=== PATIENT | male | born 1940 | race African-American/Black ===

== ENCOUNTER 2016-07-28 20:50 | Inpatient (IN) | payer MEDICARE, MEDICAID ==
[~2016-07-28] VITALS: Ht 172.7 cm; Wt 72.6 kg
[~2016-07-28 20:50] MED LIST: CANAGLIFLOZIN; DOCU-150 PO; DORZ10DR9 OP; ENAL2.5T PO; GABA100C PO; GLIP5TAB12 PO; HEPARIN; HYDR-519 PO; IRON1CAP21 PO; LATA2.5D2 OP; METF500T4 PO; OMEG1CAP17 PO; OXYB15TA9 PO; SENN-22 PO; TRAM50TA3 PO
[2016-07-28 21:45] VITALS: BP 137/77
[2016-07-28] MEDS ORDERED: DEXTROSE 50% WATER 50ML SYRINGE IV PRN (22:00)
[2016-07-28] MEDS: BLOOD SUGAR DIAGNOSTIC STRIP TEST SCH (23:02)
[2016-07-28] MEDS: LATANOPROST 0.005% OPHTH DROPS 2.5ML RIGHTEYE SCH (23:02)
[2016-07-28] MEDS: INSULIN LISPRO 100 UNITS/ML SUBCUT SCH (23:05)
[2016-07-29] MEDS: PIPERACILLIN/TAZ 3.375G PREMIX 50 ML IV SCH ×5 (00:11→23:19)
[2016-07-29] MEDS: SODIUM CHLORIDE 0.9% 1,000 ML IV SCH ×2 (00:11→21:29)
[2016-07-29] MEDS ORDERED: BLOOD SUGAR DIAGNOSTIC STRIP TEST SCH (06:30)
[2016-07-29] MEDS: INSULIN LISPRO 100 UNITS/ML SUBCUT SCH ×4 (06:40→21:27)
[2016-07-29] MEDS: BLOOD SUGAR DIAGNOSTIC STRIP TEST SCH ×4 (06:40→21:29)
[2016-07-29 06:54] LABS: BASOPHILS % 0.7 % (0.0-2.0); EOSINOPHILS % 2.2 % (0.0-5.0); HEMATOCRIT. 26.1 % (42.0-52.0); HEMOGLOBIN. 8.5 g/dL (14.0-18.0); LYMPHOCYTES % 9.8 % (20.0-50.0); MEAN CORPUSCULAR HEMOGLOBIN 27.2 pg (28.0-32.0); MEAN CORPUSCULAR VOLUME 83.5 fL (80.0-94.0); MEAN PLATELET VOLUME 8.4 fl (7.4-10.4); MONOCYTES % 6.7 % (2.0-8.0); NEUTROPHILS % 80.6 % (40.0-76.0); PLATELET 212 x1000/uL (130-400); RED BLOOD CELL COUNT 3.12 mill/uL (4.7-6.1); RED CELL DISTRIBUTION WIDTH 16.8 % (11.6-14.6)
[2016-07-29 07:13] LABS: CARBON DIOXIDE 30 mEq/L (21-32); CHLORIDE 103 mEq/L (98-107)
[2016-07-29 08:00] VITALS: BP 128/65
[2016-07-29] MEDS: GABAPENTIN 100MG CAPSULE PO SCH ×2 (08:34→17:11)
[2016-07-29] MEDS: FAMOTIDINE 20MG TABLET PO SCH ×2 (08:34→21:20)
[2016-07-29] MEDS: DORZOLAM/TIMOLOL 2.23/0.68% OPHTH DROPS 10ML RIGHTEYE SCH ×2 (08:34→17:11)
[2016-07-29] MEDS: LOSARTAN POTASSIUM 50 MG TABLET PO SCH ×2 (08:35→21:20)
[2016-07-29] MEDS ORDERED: DOCUSATE SODIUM 100MG CAPSULE PO SCH (09:00)
[2016-07-29] MEDS ORDERED: INSULIN LISPRO 100 UNITS/ML SUBCUT SCH (09:00)
[2016-07-29] MEDS: ACETAMINOPHEN 650MG/20.3ML UDC PO PRN (12:39)
[2016-07-29] MEDS: DOCUSATE SODIUM 100MG CAPSULE PO SCH ×2 (17:00→17:11)
[2016-07-29 20:00] VITALS: BP 134/79
[2016-07-29] MEDS ORDERED: LATANOPROST 0.005% OPHTH DROPS 2.5ML RIGHTEYE SCH (21:00)
[2016-07-29] MEDS: HYDROCODONE/ACETAMINOPHEN 5/325MG TABLET PO PRN (21:23)
[2016-07-29] MEDS: LATANOPROST 0.005% OPHTH DROPS 2.5ML RIGHTEYE SCH (21:28)
[2016-07-30] MEDS: HYDROCODONE/ACETAMINOPHEN 5/325MG TABLET PO PRN ×2 (05:40→18:02)
[2016-07-30] MEDS: PIPERACILLIN/TAZ 3.375G PREMIX 50 ML IV SCH ×3 (06:33→17:22)
[2016-07-30] MEDS: BLOOD SUGAR DIAGNOSTIC STRIP TEST SCH ×4 (06:34→21:00)
[2016-07-30] MEDS: INSULIN LISPRO 100 UNITS/ML SUBCUT SCH ×4 (06:36→23:02)
[2016-07-30 08:00] VITALS: BP 145/87
[2016-07-30] MEDS: DOCUSATE SODIUM 100MG CAPSULE PO SCH ×2 (08:54→17:22)
[2016-07-30] MEDS: GABAPENTIN 100MG CAPSULE PO SCH ×2 (08:54→17:21)
[2016-07-30] MEDS: LOSARTAN POTASSIUM 50 MG TABLET PO SCH ×2 (08:54→21:00)
[2016-07-30] MEDS: FAMOTIDINE 20MG TABLET PO SCH ×2 (08:54→22:01)
[2016-07-30] MEDS: DORZOLAM/TIMOLOL 2.23/0.68% OPHTH DROPS 10ML RIGHTEYE SCH (08:55)
[2016-07-30] MEDS: DORZOLAM/TIMOLOL 2.23/0.68% OPHTH DROPS 10ML BOTHEYE SCH (17:21)
[2016-07-30 17:34] LABS: BASOPHILS % 0.6 % (0.0-2.0); EOSINOPHILS % 1.3 % (0.0-5.0); HEMATOCRIT. 26.9 % (42.0-52.0); HEMOGLOBIN. 8.6 g/dL (14.0-18.0); LYMPHOCYTES % 9.3 % (20.0-50.0); MEAN CORPUSCULAR HEMOGLOBIN 27.3 pg (28.0-32.0); MEAN CORPUSCULAR VOLUME 84.9 fL (80.0-94.0); MEAN PLATELET VOLUME 8.5 fl (7.4-10.4); MONOCYTES % 5.4 % (2.0-8.0); NEUTROPHILS % 83.4 % (40.0-76.0); PLATELET 216 x1000/uL (130-400); RED BLOOD CELL COUNT 3.16 mill/uL (4.7-6.1); RED CELL DISTRIBUTION WIDTH 16.9 % (11.6-14.6)
[2016-07-30 17:56] LABS: CARBON DIOXIDE 29 mEq/L (21-32); CHLORIDE 102 mEq/L (98-107)
[2016-07-30 20:00] VITALS: BP 110/66
[2016-07-30] MEDS: SODIUM CHLORIDE 0.9% 1,000 ML IV SCH (22:04)
[2016-07-30] MEDS: LATANOPROST 0.005% OPHTH DROPS 2.5ML BOTHEYE SCH (22:09)
[2016-07-31] MEDS: PIPERACILLIN/TAZ 3.375G PREMIX 50 ML IV SCH ×5 (00:48→23:20)
[2016-07-31] MEDS: BLOOD SUGAR DIAGNOSTIC STRIP TEST SCH ×4 (05:47→21:19)
[2016-07-31] MEDS: HYDROCODONE/ACETAMINOPHEN 5/325MG TABLET PO PRN ×3 (05:50→23:42)
[2016-07-31] MEDS: INSULIN LISPRO 100 UNITS/ML SUBCUT SCH ×4 (07:27→21:28)
[2016-07-31 08:00] VITALS: BP 135/87
[2016-07-31] MEDS: GABAPENTIN 100MG CAPSULE PO SCH ×2 (08:45→17:24)
[2016-07-31] MEDS: LOSARTAN POTASSIUM 50 MG TABLET PO SCH ×2 (08:45→21:19)
[2016-07-31] MEDS: FAMOTIDINE 20MG TABLET PO SCH ×2 (08:45→21:19)
[2016-07-31] MEDS: DOCUSATE SODIUM 100MG CAPSULE PO SCH ×2 (08:45→17:24)
[2016-07-31] MEDS: DORZOLAM/TIMOLOL 2.23/0.68% OPHTH DROPS 10ML BOTHEYE SCH ×3 (08:46→17:24)
[2016-07-31 20:00] VITALS: BP 150/72
[2016-07-31] MEDS: LATANOPROST 0.005% OPHTH DROPS 2.5ML BOTHEYE SCH (21:18)
[2016-07-31] MEDS: MICONAZOLE NITRATE 2% OINT 71GM TOP SCH (21:28)
[2016-07-31] MEDS: SODIUM CHLORIDE 0.9% 1,000 ML IV SCH (23:20)
[2016-08-01] MEDS: PIPERACILLIN/TAZ 3.375G PREMIX 50 ML IV SCH ×4 (05:00→23:14)
[2016-08-01 05:50] LABS: EOSINOPHILS % 1.5 % (0.0-5.0); HEMOGLOBIN. 8.7 g/dL (14.0-18.0); LYMPHOCYTES % 10.9 % (20.0-50.0); MEAN CORPUSCULAR HEMOGLOBIN 27.5 pg (28.0-32.0); MEAN CORPUSCULAR VOLUME 85.3 fL (80.0-94.0); MEAN PLATELET VOLUME 8.6 fl (7.4-10.4); MONOCYTES % 6.8 % (2.0-8.0); NEUTROPHILS % 79.8 % (40.0-76.0); PLATELET 207 x1000/uL (130-400); RED BLOOD CELL COUNT 3.17 mill/uL (4.7-6.1); RED CELL DISTRIBUTION WIDTH 17.3 % (11.6-14.6)
[2016-08-01] MEDS: BLOOD SUGAR DIAGNOSTIC STRIP TEST SCH ×4 (05:54→21:00)
[2016-08-01] MEDS: INSULIN LISPRO 100 UNITS/ML SUBCUT SCH ×4 (06:31→22:10)
[2016-08-01 06:39] LABS: CARBON DIOXIDE 29 mEq/L (21-32); CHLORIDE 103 mEq/L (98-107)
[2016-08-01 08:00] VITALS: BP 136/73
[2016-08-01] MEDS: DOCUSATE SODIUM 100MG CAPSULE PO SCH ×2 (09:06→16:39)
[2016-08-01] MEDS: LOSARTAN POTASSIUM 50 MG TABLET PO SCH ×2 (09:06→22:13)
[2016-08-01] MEDS: FAMOTIDINE 20MG TABLET PO SCH ×2 (09:06→22:13)
[2016-08-01] MEDS: GABAPENTIN 100MG CAPSULE PO SCH ×2 (09:06→16:39)
[2016-08-01] MEDS: DORZOLAM/TIMOLOL 2.23/0.68% OPHTH DROPS 10ML BOTHEYE SCH ×2 (09:07→17:16)
[2016-08-01] MEDS: MICONAZOLE NITRATE 2% OINT 71GM TOP SCH ×2 (09:12→22:08)
[2016-08-01] MEDS: HYDROCODONE/ACETAMINOPHEN 5/325MG TABLET PO PRN ×2 (16:39→23:22)
[2016-08-01 20:00] VITALS: BP 111/51
[2016-08-01] MEDS: LATANOPROST 0.005% OPHTH DROPS 2.5ML BOTHEYE SCH (21:00)
[2016-08-01] MEDS: SODIUM CHLORIDE 0.9% 1,000 ML IV SCH (22:08)
[2016-08-02] MEDS: BLOOD SUGAR DIAGNOSTIC STRIP TEST SCH ×4 (06:22→21:00)
[2016-08-02] MEDS: PIPERACILLIN/TAZ 3.375G PREMIX 50 ML IV SCH ×2 (06:22→11:38)
[2016-08-02] MEDS: INSULIN LISPRO 100 UNITS/ML SUBCUT SCH ×4 (06:26→22:19)
[2016-08-02 07:00] LABS: BASOPHILS % 0.9 % (0.0-2.0); EOSINOPHILS % 1.1 % (0.0-5.0); HEMATOCRIT. 26.8 % (42.0-52.0); HEMOGLOBIN. 8.7 g/dL (14.0-18.0); MEAN CORPUSCULAR HEMOGLOBIN 27.8 pg (28.0-32.0); MEAN CORPUSCULAR VOLUME 85.4 fL (80.0-94.0); MEAN PLATELET VOLUME 9.1 fl (7.4-10.4); MONOCYTES % 5.6 % (2.0-8.0); NEUTROPHILS % 82.4 % (40.0-76.0); PLATELET 192 x1000/uL (130-400); RED BLOOD CELL COUNT 3.14 mill/uL (4.7-6.1); RED CELL DISTRIBUTION WIDTH 17.3 % (11.6-14.6)
[2016-08-02 08:00] VITALS: BP 130/60
[2016-08-02] MEDS: LOSARTAN POTASSIUM 50 MG TABLET PO SCH ×2 (08:09→22:09)
[2016-08-02] MEDS: DOCUSATE SODIUM 100MG CAPSULE PO SCH ×2 (08:09→16:51)
[2016-08-02] MEDS: FAMOTIDINE 20MG TABLET PO SCH ×2 (08:09→22:09)
[2016-08-02] MEDS: GABAPENTIN 100MG CAPSULE PO SCH ×2 (08:09→16:51)
[2016-08-02] MEDS: MICONAZOLE NITRATE 2% OINT 71GM TOP SCH ×2 (08:12→22:24)
[2016-08-02] MEDS: HYDROCODONE/ACETAMINOPHEN 5/325MG TABLET PO PRN ×2 (08:12→22:11)
[2016-08-02] MEDS: DORZOLAM/TIMOLOL 2.23/0.68% OPHTH DROPS 10ML BOTHEYE SCH ×2 (08:17→16:51)
[2016-08-02 19:00] VITALS: BP 139/83
[2016-08-02] MEDS: LATANOPROST 0.005% OPHTH DROPS 2.5ML BOTHEYE SCH (22:09)
[2016-08-02] MEDS: SODIUM CHLORIDE 0.9% 1,000 ML IV SCH (22:24)
[2016-08-03] MEDS: BLOOD SUGAR DIAGNOSTIC STRIP TEST SCH ×4 (05:53→21:00)
[2016-08-03] MEDS: INSULIN LISPRO 100 UNITS/ML SUBCUT SCH ×4 (06:24→22:38)
[2016-08-03 06:44] LABS: BASOPHILS % 0.8 % (0.0-2.0); EOSINOPHILS % 1.2 % (0.0-5.0); HEMATOCRIT. 27.1 % (42.0-52.0); HEMOGLOBIN. 8.6 g/dL (14.0-18.0); LYMPHOCYTES % 11.9 % (20.0-50.0); MEAN CORPUSCULAR HEMOGLOBIN 27.1 pg (28.0-32.0); MEAN CORPUSCULAR VOLUME 85.3 fL (80.0-94.0); MEAN PLATELET VOLUME 8.5 fl (7.4-10.4); NEUTROPHILS % 80.1 % (40.0-76.0); PLATELET 191 x1000/uL (130-400); RED BLOOD CELL COUNT 3.17 mill/uL (4.7-6.1); RED CELL DISTRIBUTION WIDTH 17.1 % (11.6-14.6)
[2016-08-03 07:05] LABS: CHLORIDE 105 mEq/L (98-107)
[2016-08-03 07:21] LABS: CARBON DIOXIDE 29 mEq/L (21-32); CREATINE KINASE 164 IU/L (39-308)
[2016-08-03 08:00] VITALS: BP 132/77
[2016-08-03] MEDS: HYDROCODONE/ACETAMINOPHEN 5/325MG TABLET PO PRN (08:12)
[2016-08-03] MEDS: FAMOTIDINE 20MG TABLET PO SCH ×2 (08:12→22:31)
[2016-08-03] MEDS: DOCUSATE SODIUM 100MG CAPSULE PO SCH ×2 (08:12→16:28)
[2016-08-03] MEDS: LOSARTAN POTASSIUM 50 MG TABLET PO SCH ×2 (08:12→22:31)
[2016-08-03] MEDS: DORZOLAM/TIMOLOL 2.23/0.68% OPHTH DROPS 10ML BOTHEYE SCH ×2 (08:12→16:27)
[2016-08-03] MEDS: GABAPENTIN 100MG CAPSULE PO SCH ×2 (08:12→16:28)
[2016-08-03] MEDS: MICONAZOLE NITRATE 2% OINT 71GM TOP SCH ×2 (08:13→22:32)
[2016-08-03 20:00] VITALS: BP 139/76
[2016-08-03] MEDS: LATANOPROST 0.005% OPHTH DROPS 2.5ML BOTHEYE SCH (22:31)
[2016-08-04] MEDS: ACETAMINOPHEN 650MG/20.3ML UDC PO PRN ×2 (00:49→20:23)
[2016-08-04] MEDS: INSULIN LISPRO 100 UNITS/ML SUBCUT SCH ×4 (06:27→20:28)
[2016-08-04] MEDS: BLOOD SUGAR DIAGNOSTIC STRIP TEST SCH ×4 (06:28→20:28)
[2016-08-04 06:34] LABS: BASOPHILS % 1.2 % (0.0-2.0); EOSINOPHILS % 1.3 % (0.0-5.0); LYMPHOCYTES % 12.2 % (20.0-50.0); MEAN CORPUSCULAR HEMOGLOBIN 27.3 pg (28.0-32.0); MEAN PLATELET VOLUME 8.5 fl (7.4-10.4); MONOCYTES % 6.2 % (2.0-8.0); NEUTROPHILS % 79.1 % (40.0-76.0); PLATELET 199 x1000/uL (130-400); RED BLOOD CELL COUNT 3.29 mill/uL (4.7-6.1)
[2016-08-04 08:00] VITALS: BP 140/83
[2016-08-04] MEDS: LOSARTAN POTASSIUM 50 MG TABLET PO SCH ×2 (08:30→20:23)
[2016-08-04] MEDS: FAMOTIDINE 20MG TABLET PO SCH ×2 (08:30→20:23)
[2016-08-04] MEDS: DORZOLAM/TIMOLOL 2.23/0.68% OPHTH DROPS 10ML BOTHEYE SCH ×2 (08:30→16:59)
[2016-08-04] MEDS: MICONAZOLE NITRATE 2% OINT 71GM TOP SCH ×2 (08:31→20:29)
[2016-08-04] MEDS: GABAPENTIN 100MG CAPSULE PO SCH ×2 (08:31→16:59)
[2016-08-04] MEDS: DOCUSATE SODIUM 100MG CAPSULE PO SCH ×2 (08:31→16:59)
[2016-08-04 20:00] VITALS: BP 135/72
[2016-08-04] MEDS: LATANOPROST 0.005% OPHTH DROPS 2.5ML BOTHEYE SCH (20:24)
[2016-08-04] MEDS: INSULIN DETEMIR UD 100 UNITS/ML SYR SUBCUT SCH (21:36)
[2016-08-05] MEDS: BLOOD SUGAR DIAGNOSTIC STRIP TEST SCH ×4 (06:40→21:42)
[2016-08-05] MEDS: INSULIN LISPRO 100 UNITS/ML SUBCUT SCH ×4 (06:40→21:38)
[2016-08-05] MEDS: HYDROCODONE/ACETAMINOPHEN 5/325MG TABLET PO PRN ×2 (06:46→18:10)
[2016-08-05 08:00] VITALS: BP 127/71
[2016-08-05] MEDS: MICONAZOLE NITRATE 2% OINT 71GM TOP SCH ×2 (08:33→21:41)
[2016-08-05] MEDS: LOSARTAN POTASSIUM 50 MG TABLET PO SCH ×2 (08:34→21:42)
[2016-08-05] MEDS: FAMOTIDINE 20MG TABLET PO SCH ×2 (08:34→21:33)
[2016-08-05] MEDS: GABAPENTIN 100MG CAPSULE PO SCH ×2 (08:34→18:01)
[2016-08-05] MEDS: DOCUSATE SODIUM 100MG CAPSULE PO SCH ×2 (08:34→18:01)
[2016-08-05] MEDS: METFORMIN HCL 500MG TABLET PO SCH ×2 (08:34→18:01)
[2016-08-05] MEDS: DORZOLAM/TIMOLOL 2.23/0.68% OPHTH DROPS 10ML BOTHEYE SCH ×2 (08:34→18:01)
[2016-08-05 20:00] VITALS: BP 122/70
[2016-08-05] MEDS: LATANOPROST 0.005% OPHTH DROPS 2.5ML BOTHEYE SCH (21:35)
[2016-08-05] MEDS: INSULIN DETEMIR UD 100 UNITS/ML SYR SUBCUT SCH (21:39)
[2016-08-06] MEDS: INSULIN LISPRO 100 UNITS/ML SUBCUT SCH ×4 (06:10→21:31)
[2016-08-06] MEDS: BLOOD SUGAR DIAGNOSTIC STRIP TEST SCH ×4 (06:10→21:22)
[2016-08-06] MEDS: HYDROCODONE/ACETAMINOPHEN 5/325MG TABLET PO PRN ×2 (06:24→21:24)
[2016-08-06 07:47] VITALS: BP 145/78
[2016-08-06] MEDS: DOCUSATE SODIUM 100MG CAPSULE PO SCH ×2 (08:39→17:03)
[2016-08-06] MEDS: LOSARTAN POTASSIUM 50 MG TABLET PO SCH ×2 (08:39→21:22)
[2016-08-06] MEDS: FAMOTIDINE 20MG TABLET PO SCH ×2 (08:39→21:22)
[2016-08-06] MEDS: METFORMIN HCL 500MG TABLET PO SCH ×2 (08:39→17:03)
[2016-08-06] MEDS: GABAPENTIN 100MG CAPSULE PO SCH ×2 (08:39→17:03)
[2016-08-06] MEDS: DORZOLAM/TIMOLOL 2.23/0.68% OPHTH DROPS 10ML BOTHEYE SCH ×2 (08:40→17:03)
[2016-08-06] MEDS: MICONAZOLE NITRATE 2% OINT 71GM TOP SCH ×2 (08:40→21:29)
[2016-08-06 20:00] VITALS: BP 116/49
[2016-08-06] MEDS: LATANOPROST 0.005% OPHTH DROPS 2.5ML BOTHEYE SCH (21:22)
[2016-08-06] MEDS: INSULIN DETEMIR UD 100 UNITS/ML SYR SUBCUT SCH (21:30)
[2016-08-07 05:42] LABS: BASOPHILS % 1.1 % (0.0-2.0); EOSINOPHILS % 2.1 % (0.0-5.0); HEMOGLOBIN. 9.6 g/dL (14.0-18.0); LYMPHOCYTES % 11.4 % (20.0-50.0); MEAN CORPUSCULAR HEMOGLOBIN 27.2 pg (28.0-32.0); MEAN CORPUSCULAR VOLUME 85.2 fL (80.0-94.0); MEAN PLATELET VOLUME 8.3 fl (7.4-10.4); MONOCYTES % 6.1 % (2.0-8.0); NEUTROPHILS % 79.3 % (40.0-76.0); PLATELET 207 x1000/uL (130-400); RED BLOOD CELL COUNT 3.52 mill/uL (4.7-6.1); RED CELL DISTRIBUTION WIDTH 17.1 % (11.6-14.6)
[2016-08-07 06:04] LABS: CHLORIDE 104 mEq/L (98-107)
[2016-08-07 06:11] LABS: CARBON DIOXIDE 29 mEq/L (21-32)
[2016-08-07] MEDS: BLOOD SUGAR DIAGNOSTIC STRIP TEST SCH ×2 (06:15→11:15)
[2016-08-07] MEDS: INSULIN LISPRO 100 UNITS/ML SUBCUT SCH ×2 (06:46→12:57)
[2016-08-07 08:00] VITALS: BP 126/84
[2016-08-07] MEDS: DOCUSATE SODIUM 100MG CAPSULE PO SCH (08:23)
[2016-08-07] MEDS: GABAPENTIN 100MG CAPSULE PO SCH (08:23)
[2016-08-07] MEDS: FAMOTIDINE 20MG TABLET PO SCH (08:23)
[2016-08-07] MEDS: LOSARTAN POTASSIUM 50 MG TABLET PO SCH (08:24)
[2016-08-07] MEDS: METFORMIN HCL 500MG TABLET PO SCH (08:24)
[2016-08-07] MEDS: DORZOLAM/TIMOLOL 2.23/0.68% OPHTH DROPS 10ML BOTHEYE SCH (08:26)
[2016-08-07] MEDS: MICONAZOLE NITRATE 2% OINT 71GM TOP SCH (08:27)
[2016-08-07] MEDS: HYDROCODONE/ACETAMINOPHEN 5/325MG TABLET PO PRN (08:40)
[2016-08-07 13:14] VITALS: BP 138/81
== END 2016-08-07 16:15 | DRG 299 ==
PROVIDERS: ADMIT Psychiatry & Neurology Neurology; ATTEND Internal Medicine
DX: E11.52 Type 2 diabetes mellitus with diabetic peripheral angiopathy with gangrene (principal); A41.9 Sepsis, unspecified organism; I10 Essential (primary) hypertension; H40.9 Unspecified glaucoma; G54.6 Phantom limb syndrome with pain; E78.5 Hyperlipidemia, unspecified; D64.9 Anemia, unspecified; M25.431 Effusion, right wrist; R26.89 Other abnormalities of gait and mobility; E11.621 Type 2 diabetes mellitus with foot ulcer; L97.529 Non-pressure chronic ulcer of other part of left foot with unspecified severity; Z89.512 Acquired absence of left leg below knee
CPT/HCPCS: 36415; 80048; 80076; 82550; 82962; 83605; 83615; 83735; 85025; 85651; 86140; 92523; 92610; 97110; 97116; 97163; 97167; 97530; 97532; 97535; 97542; A6261; J1815; J2543; J7030

== ENCOUNTER 2016-10-01 13:14 | Inpatient (IN) | payer MEDICARE, MEDICAID ==
[~2016-10-01] VITALS: Ht 180.3 cm; Wt 77.6 kg
[~2016-10-01 13:14] MED LIST changes: -CANAGLIFLOZIN; -ENAL2.5T PO; -GLIP5TAB12 PO; -HEPARIN; -HYDR-519 PO; -IRON1CAP21 PO; -OMEG1CAP17 PO; -OXYB15TA9 PO; -SENN-22 PO; -TRAM50TA3 PO
[2016-10-01 15:09] LABS: CARBON DIOXIDE 30 mEq/L (21-32); CHLORIDE 99 mEq/L (98-107)
[2016-10-01 15:10] LABS: HEMATOCRIT 33.3 % (42.0-52.0); HEMOGLOBIN 10.6 g/dL (14.0-18.0); MEAN CORPUSCULAR HEMOGLOBIN 26.3 pg (28.0-32.0); PLATELET 261 x1000/uL (130-400); RED BLOOD CELL COUNT 4.02 mill/uL (4.7-6.1); RED CELL DISTRIBUTION WIDTH 15.8 % (11.6-14.6)
[2016-10-01] MEDS ORDERED: CEFTRIAXONE 1 G PREMIX 50 ML IV ONE (16:15)
[2016-10-01] MEDS ORDERED: VANCOMYCIN 1 G PREMIX 200 ML IV SCH (21:00)
[2016-10-01] MEDS ORDERED: IPRATROPIUM/ALBUTEROL 0.5-3(2.5)MG/3ML NEB INH PRN (21:00)
[2016-10-01 21:15] VITALS: BP 136/75
[2016-10-01 22:00] VITALS: BP 107/73
[2016-10-01 22:05] LABS: CHLORIDE 98 mEq/L (98-107)
[2016-10-01 22:10] LABS: CARBON DIOXIDE 29 mEq/L (21-32)
[2016-10-01] MEDS ORDERED: VANCOMYCIN 1500MG in DEXTROSE 5% WATER 250ML IV NR (23:00)
[2016-10-02] VITALS: BP 154/82
[2016-10-02] MEDS: SODIUM CHLORIDE 0.45% 1,000 ML IV SCH ×2 (00:25→22:14)
[2016-10-02] MEDS: LEVOFLOXACIN 500MG PREMIX 100 ML IV SCH ×2 (00:35→23:16)
[2016-10-02] MEDS ORDERED: DEXTROSE 50% WATER 50ML SYRINGE IV PRN (01:30)
[2016-10-02 04:00] VITALS: BP 138/76
[2016-10-02] MEDS: BLOOD SUGAR DIAGNOSTIC STRIP TEST SCH ×4 (06:28→21:22)
[2016-10-02 06:43] LABS: HEMATOCRIT. 33.6 % (42.0-52.0); MEAN PLATELET VOLUME 7.9 fl (7.4-10.4); PLATELET 244 x1000/uL (130-400); RED BLOOD CELL COUNT 4.09 mill/uL (4.7-6.1); RED CELL DISTRIBUTION WIDTH 15.7 % (11.6-14.6)
[2016-10-02] MEDS: HYDROCODONE/ACETAMINOPHEN 5/325MG TABLET PO PRN ×3 (06:51→22:16)
[2016-10-02 08:00] VITALS: BP 143/78
[2016-10-02 08:26] LABS: PLATELET ESTIMATE NORMAL
[2016-10-02] MEDS: INSULIN LISPRO 100 UNITS/ML SUBCUT SCH ×4 (11:23→21:00)
[2016-10-02] MEDS: ENOXAPARIN 40MG/0.4ML SYR SUBCUT SCH (11:24)
[2016-10-02 12:00] VITALS: BP 148/71
[2016-10-02] MEDS: VANCOMYCIN 750 MG PREMIX 150 ML IV SCH (12:27)
[2016-10-02 16:00] VITALS: BP 142/76
[2016-10-02 20:00] VITALS: BP 157/74
[2016-10-02] MEDS: SILVER SULFADIAZINE 1% CREAM 50GM TOP SCH (21:00)
[2016-10-03] VITALS: BP 135/78
[2016-10-03] MEDS: VANCOMYCIN 750 MG PREMIX 150 ML IV SCH ×3 (00:32→20:03)
[2016-10-03 04:00] VITALS: BP 127/60
[2016-10-03] MEDS: BLOOD SUGAR DIAGNOSTIC STRIP TEST SCH ×4 (06:47→21:29)
[2016-10-03 08:00] VITALS: BP 156/81
[2016-10-03] MEDS: INSULIN LISPRO 100 UNITS/ML SUBCUT SCH ×4 (08:58→21:36)
[2016-10-03] MEDS: ENOXAPARIN 40MG/0.4ML SYR SUBCUT SCH (09:00)
[2016-10-03 12:00] VITALS: BP 180/84
[2016-10-03] MEDS: CLONIDINE 0.1MG TABLET PO PRN (12:59)
[2016-10-03] MEDS: SODIUM CHLORIDE 0.45% 1,000 ML IV SCH (13:37)
[2016-10-03 16:00] VITALS: BP 120/65
[2016-10-03] MEDS: SILVER SULFADIAZINE 1% CREAM 50GM TOP SCH ×2 (18:34→20:15)
[2016-10-03] MEDS: HYDROCODONE/ACETAMINOPHEN 5/325MG TABLET PO PRN (19:01)
[2016-10-03 20:00] VITALS: BP 132/68
[2016-10-04] VITALS: BP 127/67
[2016-10-04] MEDS ORDERED: LEVOFLOXACIN 500MG PREMIX 100 ML IV SCH
[2016-10-04] MEDS: PIPERACILLIN/TAZ 3.375G PREMIX 50 ML IV SCH ×3 (00:07→20:29)
[2016-10-04] MEDS: HYDROCODONE/ACETAMINOPHEN 5/325MG TABLET PO PRN (00:17)
[2016-10-04 04:00] VITALS: BP 111/80
[2016-10-04] MEDS: VANCOMYCIN 750 MG PREMIX 150 ML IV SCH (04:41)
[2016-10-04] MEDS: SODIUM CHLORIDE 0.45% 1,000 ML IV SCH ×3 (06:07→22:38)
[2016-10-04] MEDS: BLOOD SUGAR DIAGNOSTIC STRIP TEST SCH ×4 (06:28→20:00)
[2016-10-04] MEDS: INSULIN LISPRO 100 UNITS/ML SUBCUT SCH ×4 (07:50→21:00)
[2016-10-04 08:00] VITALS: BP 131/63
[2016-10-04 09:00] LABS: EOSINOPHILS % 1.9 % (0.0-5.0); HEMATOCRIT. 32.5 % (42.0-52.0); HEMOGLOBIN. 10.4 g/dL (14.0-18.0); LYMPHOCYTES % 14.4 % (20.0-50.0); MEAN CORPUSCULAR HEMOGLOBIN 26.3 pg (28.0-32.0); MEAN PLATELET VOLUME 7.7 fl (7.4-10.4); MONOCYTES % 6.7 % (2.0-8.0); PLATELET 251 x1000/uL (130-400); RED BLOOD CELL COUNT 3.96 mill/uL (4.7-6.1); RED CELL DISTRIBUTION WIDTH 15.7 % (11.6-14.6)
[2016-10-04] MEDS: ENOXAPARIN 40MG/0.4ML SYR SUBCUT SCH (09:00)
[2016-10-04 09:04] LABS: INR 1.3; PROTHROMBIN TIME 13.1 sec (9.4-11.6)
[2016-10-04 09:28] LABS: CARBON DIOXIDE 30 mEq/L (21-32); CHLORIDE 103 mEq/L (98-107)
[2016-10-04 12:00] VITALS: BP 161/79
[2016-10-04] MEDS ORDERED: MIDAZOLAM HCL 2 MG/2 ML VIAL ONE (13:10)
[2016-10-04] MEDS ORDERED: ONDANSETRON HCL 4MG/2ML VIAL ONE (13:10)
[2016-10-04] MEDS ORDERED: FENTANYL CITRATE/PF 50MCG/ML 2ML VIAL ONE (13:10)
[2016-10-04] MEDS ORDERED: PROPOFOL 200MG/20ML VIAL IV ONE (13:10)
[2016-10-04] MEDS ORDERED: LIDOCAINE HCL 1% 20ML VIAL (Pyxis) INJ ONE (13:10)
[2016-10-04] MEDS ORDERED: NORMAL SALINE 0.9% 10 ML SYR ONE (13:29)
[2016-10-04] MEDS ORDERED: BACITRACIN 50,000 UNITS/VIAL ONE (13:29)
[2016-10-04] MEDS ORDERED: LABETALOL HCL 5MG/ML VIAL 20ML IV ONE (14:08)
[2016-10-04] MEDS: ONDANSETRON HCL 4MG/2ML VIAL IV PRN ×2 (14:28→14:31)
[2016-10-04] MEDS: HYDROMORPHONE HCL/PF 2MG/ML CPJ IV PRN ×3 (14:34→22:39)
[2016-10-04] MEDS ORDERED: HYDRALAZINE 20MG/ML VIAL IV NR (17:00)
[2016-10-04 18:00] VITALS: BP 144/71
[2016-10-04 20:00] VITALS: BP 153/75
[2016-10-04] MEDS: VANCOMYCIN 1500MG in DEXTROSE 5% WATER 250ML IV SCH (20:29)
[2016-10-05] VITALS (9 sets, daily range): BP systolic 91–171; BP diastolic 51–85
[2016-10-05] MEDS: PIPERACILLIN/TAZ 3.375G PREMIX 50 ML IV SCH ×4 (00:38→23:50)
[2016-10-05] MEDS: HYDROCODONE/ACETAMINOPHEN 5/325MG TABLET PO PRN ×4 (04:24→21:48)
[2016-10-05] MEDS: BLOOD SUGAR DIAGNOSTIC STRIP TEST SCH ×4 (06:33→21:14)
[2016-10-05] MEDS: SODIUM CHLORIDE 0.45% 1,000 ML IV SCH ×2 (06:33→21:13)
[2016-10-05] MEDS: VANCOMYCIN 1500MG in DEXTROSE 5% WATER 250ML IV SCH (06:33)
[2016-10-05 06:38] LABS: HEMATOCRIT. 29.8 % (42.0-52.0); HEMOGLOBIN. 9.5 g/dL (14.0-18.0); MEAN CORPUSCULAR HEMOGLOBIN 26.2 pg (28.0-32.0); MEAN PLATELET VOLUME 8.5 fl (7.4-10.4); PLATELET 290 x1000/uL (130-400); RED BLOOD CELL COUNT 3.63 mill/uL (4.7-6.1); RED CELL DISTRIBUTION WIDTH 15.4 % (11.6-14.6)
[2016-10-05 06:57] LABS: CARBON DIOXIDE 26 mEq/L (21-32); CHLORIDE 100 mEq/L (98-107)
[2016-10-05] MEDS: HYDROMORPHONE HCL/PF 2MG/ML CPJ IV PRN (09:25)
[2016-10-05] MEDS: SILVER SULFADIAZINE 1% CREAM 50GM TOP SCH (12:30)
[2016-10-05] MEDS: INSULIN LISPRO 100 UNITS/ML SUBCUT SCH ×3 (12:50→21:48)
[2016-10-05 16:23] LABS: HEMOGLOBIN. 7.8 g/dL (14.0-18.0); MEAN CORPUSCULAR HEMOGLOBIN 26.3 pg (28.0-32.0); MEAN CORPUSCULAR VOLUME 81.2 fL (80.0-94.0); MEAN PLATELET VOLUME 8.7 fl (7.4-10.4); PLATELET 279 x1000/uL (130-400); RED BLOOD CELL COUNT 2.95 mill/uL (4.7-6.1); RED CELL DISTRIBUTION WIDTH 15.7 % (11.6-14.6)
[2016-10-05 19:47] LABS: PLATELET ESTIMATE NORMAL
[2016-10-05] MEDS: AMIKACIN SULFATE 400 MG in SODIUM CHLORIDE 0.9% 100 ML IV SCH (21:14)
[2016-10-05 22:14] LABS: PLATELET ESTIMATE NORMAL
[2016-10-06] VITALS (18 sets, daily range): BP systolic 106–139; BP diastolic 46–78
[2016-10-06] MEDS: BLOOD SUGAR DIAGNOSTIC STRIP TEST SCH ×4 (06:22→21:00)
[2016-10-06] MEDS: PIPERACILLIN/TAZ 3.375G PREMIX 50 ML IV SCH ×3 (06:22→23:36)
[2016-10-06] MEDS: AMIKACIN SULFATE 400 MG in SODIUM CHLORIDE 0.9% 100 ML IV SCH ×2 (06:22→13:43)
[2016-10-06 07:17] LABS: HEMATOCRIT. 23.7 % (42.0-52.0); HEMOGLOBIN. 7.6 g/dL (14.0-18.0); MEAN CORPUSCULAR HEMOGLOBIN 26.6 pg (28.0-32.0); MEAN CORPUSCULAR VOLUME 82.3 fL (80.0-94.0); MEAN PLATELET VOLUME 8.7 fl (7.4-10.4); PLATELET 244 x1000/uL (130-400); RED BLOOD CELL COUNT 2.88 mill/uL (4.7-6.1); RED CELL DISTRIBUTION WIDTH 15.4 % (11.6-14.6)
[2016-10-06 07:19] LABS: CARBON DIOXIDE 28 mEq/L (21-32); CHLORIDE 99 mEq/L (98-107); CREATINE KINASE 525 IU/L (39-308); VANCOMYCIN TROUGH 9.1 ug/mL (5.0-10.0)
[2016-10-06] MEDS: SILVER SULFADIAZINE 1% CREAM 50GM TOP SCH (07:32)
[2016-10-06] MEDS: SODIUM CHLORIDE 0.45% 1,000 ML IV SCH ×2 (11:37→23:38)
[2016-10-06] MEDS: INSULIN LISPRO 100 UNITS/ML SUBCUT SCH ×3 (13:41→21:00)
[2016-10-06] MEDS: HYDROCODONE/ACETAMINOPHEN 5/325MG TABLET PO PRN ×2 (13:53→18:11)
[2016-10-06 16:22] LABS: MEAN CORPUSCULAR HEMOGLOBIN 26.6 pg (28.0-32.0); MEAN CORPUSCULAR VOLUME 82.2 fL (80.0-94.0); MEAN PLATELET VOLUME 9.1 fl (7.4-10.4); PLATELET 236 x1000/uL (130-400); RED CELL DISTRIBUTION WIDTH 15.6 % (11.6-14.6)
[2016-10-06 16:31] LABS: HEMATOCRIT. 18.1 % (42.0-52.0); HEMOGLOBIN. 5.9 g/dL (14.0-18.0)
[2016-10-06 19:44] LABS: PLATELET ESTIMATE NORMAL
[2016-10-06] MEDS: VANCOMYCIN 1500MG in DEXTROSE 5% WATER 250ML IV SCH (21:37)
[2016-10-06 22:46] LABS: PLATELET ESTIMATE NORMAL
[2016-10-06] MEDS: MORPHINE SULFATE 2 MG/ML CPJ (NOT FOR IM USE) IV PRN (23:39)
[2016-10-07] VITALS (8 sets, daily range): BP systolic 116–157; BP diastolic 47–76
[2016-10-07] MEDS: MORPHINE SULFATE 2 MG/ML CPJ (NOT FOR IM USE) IV PRN ×3 (04:25→12:36)
[2016-10-07] MEDS: PIPERACILLIN/TAZ 3.375G PREMIX 50 ML IV SCH ×3 (06:00→12:35)
[2016-10-07 06:13] LABS: HEMATOCRIT. 21.2 % (42.0-52.0); HEMOGLOBIN. 7.1 g/dL (14.0-18.0); MEAN CORPUSCULAR HEMOGLOBIN 27.7 pg (28.0-32.0); MEAN CORPUSCULAR VOLUME 83.2 fL (80.0-94.0); PLATELET 223 x1000/uL (130-400); RED BLOOD CELL COUNT 2.55 mill/uL (4.7-6.1); RED CELL DISTRIBUTION WIDTH 14.6 % (11.6-14.6)
[2016-10-07 06:31] LABS: CARBON DIOXIDE 25 mEq/L (21-32); CHLORIDE 100 mEq/L (98-107)
[2016-10-07] MEDS: VANCOMYCIN 1500MG in DEXTROSE 5% WATER 250ML IV SCH ×2 (06:34→17:00)
[2016-10-07] MEDS: BLOOD SUGAR DIAGNOSTIC STRIP TEST SCH ×4 (07:20→21:00)
[2016-10-07] MEDS: SILVER SULFADIAZINE 1% CREAM 50GM TOP SCH (08:15)
[2016-10-07 08:53] LABS: INR 1.3; PROTHROMBIN TIME 13.4 sec (9.4-11.6)
[2016-10-07] MEDS: INSULIN LISPRO 100 UNITS/ML SUBCUT SCH ×4 (09:35→22:58)
[2016-10-07] MEDS: SODIUM CHLORIDE 0.45% 1,000 ML IV SCH (10:50)
[2016-10-07 12:30] LABS: INR 1.3; PARTIAL THROMBOPLASTIN TIME 28.7 sec (23.4-31.0); PROTHROMBIN TIME 13.4 sec (9.4-11.6)
[2016-10-07 16:14] LABS: MEAN CORPUSCULAR HEMOGLOBIN 27.3 pg (28.0-32.0); MEAN CORPUSCULAR VOLUME 83.3 fL (80.0-94.0); MEAN PLATELET VOLUME 8.3 fl (7.4-10.4); PLATELET 206 x1000/uL (130-400); RED BLOOD CELL COUNT 2.21 mill/uL (4.7-6.1); RED CELL DISTRIBUTION WIDTH 14.6 % (11.6-14.6)
[2016-10-07 16:19] LABS: HEMATOCRIT. 18.4 % (42.0-52.0)
[2016-10-07] MEDS ORDERED: BACITRACIN 50,000 UNITS/VIAL ONE (17:17)
[2016-10-07] MEDS ORDERED: NORMAL SALINE 0.9% 10 ML SYR ONE (17:40)
[2016-10-07] MEDS ORDERED: SODIUM CHLORIDE 0.9% 10ML VIAL ONE ×3 (17:41→18:29)
[2016-10-07] MEDS ORDERED: PHENYLEPHRINE HCL 10 MG/ML 1ML (IV VIAL) IV ONE (17:41)
[2016-10-07] MEDS ORDERED: PROPOFOL 200MG/20ML VIAL IV ONE (17:41)
[2016-10-07] MEDS ORDERED: LIDOCAINE HCL 1% 20ML VIAL (Pyxis) INJ ONE (17:41)
[2016-10-07] MEDS ORDERED: ROCURONIUM BROMIDE 10MG/ML VIAL 5ML IV ONE (17:46)
[2016-10-07 18:28] LABS: PLATELET ESTIMATE NORMAL
[2016-10-07] MEDS ORDERED: CEFAZOLIN SODIUM 1000MG/VIAL ONE (18:29)
[2016-10-07] MEDS ORDERED: ONDANSETRON HCL 4MG/2ML VIAL ONE (18:36)
[2016-10-07] MEDS ORDERED: DEXAMETHASONE 4MG/ML 1ML VIAL ONE (18:36)
[2016-10-07] MEDS ORDERED: [UNRECOGNIZED DRUG - OTHER] ONE ×2 (18:38→18:42)
[2016-10-07 18:49] LABS: PLATELET ESTIMATE NORMAL
[2016-10-07] MEDS ORDERED: EPINEPHRINE 1:1000 1 MG/ML AMP ONE (18:55)
[2016-10-07] MEDS ORDERED: MORPHINE SULFATE 2 MG/ML CPJ (NOT FOR IM USE) IV PRN (20:45)
[2016-10-07 22:45] LABS: HEMATOCRIT. 28.9 % (42.0-52.0); HEMOGLOBIN. 9.6 g/dL (14.0-18.0); MEAN CORPUSCULAR HEMOGLOBIN 29.3 pg (28.0-32.0); MEAN CORPUSCULAR VOLUME 88.2 fL (80.0-94.0); MEAN PLATELET VOLUME 8.6 fl (7.4-10.4); PLATELET 169 x1000/uL (130-400); RED BLOOD CELL COUNT 3.28 mill/uL (4.7-6.1); RED CELL DISTRIBUTION WIDTH 16.3 % (11.6-14.6)
[2016-10-07] MEDS: DEXT 5%/0.45% NACL KCL 20MEQ/L 1,000 ML IV SCH (22:59)
[2016-10-07] MEDS: CEFAZOLIN 1000MG PREMIX 50 ML IV SCH (23:00)
[2016-10-07 23:05] LABS: NUCLEATED RED BLOOD CELLS 1 /100 WBC; PLATELET ESTIMATE NORMAL
[2016-10-08] VITALS (7 sets, daily range): BP systolic 116–150; BP diastolic 66–82
[2016-10-08] MEDS: CEFAZOLIN 1000MG PREMIX 50 ML IV SCH ×2 (04:29→12:36)
[2016-10-08] MEDS: ACETAMINOPHEN 325MG TABLET PO PRN (04:37)
[2016-10-08] MEDS: VANCOMYCIN 1500MG in DEXTROSE 5% WATER 250ML IV SCH ×2 (05:02→17:14)
[2016-10-08] MEDS: BLOOD SUGAR DIAGNOSTIC STRIP TEST SCH ×4 (07:21→21:00)
[2016-10-08] MEDS: INSULIN LISPRO 100 UNITS/ML SUBCUT SCH ×4 (07:38→22:10)
[2016-10-08 07:52] LABS: HEMATOCRIT. 25.9 % (42.0-52.0); HEMOGLOBIN. 8.6 g/dL (14.0-18.0); MEAN CORPUSCULAR HEMOGLOBIN 29.3 pg (28.0-32.0); MEAN CORPUSCULAR VOLUME 88.2 fL (80.0-94.0); PLATELET 158 x1000/uL (130-400); RED BLOOD CELL COUNT 2.94 mill/uL (4.7-6.1); RED CELL DISTRIBUTION WIDTH 15.7 % (11.6-14.6)
[2016-10-08] MEDS: SILVER SULFADIAZINE 1% CREAM 50GM TOP SCH (09:00)
[2016-10-08] MEDS: DEXT 5%/0.45% NACL KCL 20MEQ/L 1,000 ML IV SCH ×2 (12:36→15:30)
[2016-10-08] MEDS: MORPHINE SULFATE 2 MG/ML CPJ (NOT FOR IM USE) IV PRN ×2 (14:12→22:42)
[2016-10-08 16:08] LABS: HEMOGLOBIN 8.8 g/dL (14.0-18.0)
[2016-10-09 00:44] VITALS: BP 129/65
[2016-10-09] MEDS: DEXT 5%/0.45% NACL KCL 20MEQ/L 1,000 ML IV SCH ×2 (03:14→15:20)
[2016-10-09 04:48] VITALS: BP 136/60
[2016-10-09] MEDS: VANCOMYCIN 1500MG in DEXTROSE 5% WATER 250ML IV SCH ×2 (06:41→17:11)
[2016-10-09] MEDS: BLOOD SUGAR DIAGNOSTIC STRIP TEST SCH ×4 (06:42→21:52)
[2016-10-09 08:00] VITALS: BP 132/59
[2016-10-09] MEDS: INSULIN LISPRO 100 UNITS/ML SUBCUT SCH ×4 (08:38→21:53)
[2016-10-09] MEDS: SILVER SULFADIAZINE 1% CREAM 50GM TOP SCH (08:45)
[2016-10-09 09:06] LABS: IMMUNOGLOBULIN A 342 mg/dL (61-437); IMMUNOGLOBULIN G 913 mg/dL (700-1600); IMMUNOGLOBULIN M 27 mg/dL (15-143)
[2016-10-09 09:35] LABS: HEMATOCRIT. 25.4 % (42.0-52.0); HEMOGLOBIN. 8.4 g/dL (14.0-18.0); MEAN CORPUSCULAR HEMOGLOBIN 29.2 pg (28.0-32.0); MEAN CORPUSCULAR VOLUME 88.8 fL (80.0-94.0); MEAN PLATELET VOLUME 8.6 fl (7.4-10.4); PLATELET 163 x1000/uL (130-400); RED BLOOD CELL COUNT 2.87 mill/uL (4.7-6.1); RED CELL DISTRIBUTION WIDTH 15.6 % (11.6-14.6)
[2016-10-09 09:48] LABS: CARBON DIOXIDE 28 mEq/L (21-32); CHLORIDE 101 mEq/L (98-107)
[2016-10-09] MEDS: MORPHINE SULFATE 2 MG/ML CPJ (NOT FOR IM USE) IV PRN ×2 (09:54→17:03)
[2016-10-09 12:00] VITALS: BP 152/68
[2016-10-09] MEDS: PANTOPRAZOLE 40MG DR TABLET PO SCH ×2 (15:19→21:51)
[2016-10-09 16:00] VITALS: BP 138/51
[2016-10-09 20:00] VITALS: BP 163/86
[2016-10-09 20:16] LABS: PLATELET ESTIMATE NORMAL
[2016-10-10] VITALS: BP 137/59
[2016-10-10] MEDS: DEXT 5%/0.45% NACL KCL 20MEQ/L 1,000 ML IV SCH ×3 (03:55→18:26)
[2016-10-10 04:00] VITALS: BP 141/60
[2016-10-10] MEDS: VANCOMYCIN 1500MG in DEXTROSE 5% WATER 250ML IV SCH ×2 (06:01→16:48)
[2016-10-10] MEDS: PANTOPRAZOLE 40MG DR TABLET PO SCH ×2 (06:25→21:25)
[2016-10-10] MEDS: BLOOD SUGAR DIAGNOSTIC STRIP TEST SCH ×4 (06:25→21:25)
[2016-10-10 06:28] LABS: HEMATOCRIT. 24.7 % (42.0-52.0); HEMOGLOBIN. 8.3 g/dL (14.0-18.0); MEAN CORPUSCULAR HEMOGLOBIN 29.6 pg (28.0-32.0); MEAN CORPUSCULAR VOLUME 88.6 fL (80.0-94.0); MEAN PLATELET VOLUME 8.6 fl (7.4-10.4); PLATELET 156 x1000/uL (130-400); RED BLOOD CELL COUNT 2.79 mill/uL (4.7-6.1); RED CELL DISTRIBUTION WIDTH 15.8 % (11.6-14.6)
[2016-10-10 07:18] LABS: CHLORIDE 104 mEq/L (98-107)
[2016-10-10 07:27] LABS: CARBON DIOXIDE 28 mEq/L (21-32)
[2016-10-10 08:00] VITALS: BP 148/65
[2016-10-10] MEDS: INSULIN LISPRO 100 UNITS/ML SUBCUT SCH ×4 (08:45→21:24)
[2016-10-10] MEDS: SILVER SULFADIAZINE 1% CREAM 50GM TOP SCH (09:00)
[2016-10-10] MEDS: MORPHINE SULFATE 2 MG/ML CPJ (NOT FOR IM USE) IV PRN ×3 (10:29→18:27)
[2016-10-10 12:00] VITALS: BP 110/42
[2016-10-10 13:00] LABS: PLATELET ESTIMATE NORMAL
[2016-10-10 15:03] VITALS: BP 128/63
[2016-10-10 20:00] VITALS: BP 140/70
[2016-10-10 23:14] LABS: PLATELET ESTIMATE NORMAL
[2016-10-11] VITALS: BP 174/85
[2016-10-11] MEDS: CLONIDINE 0.1MG TABLET PO PRN ×2 (01:22→06:49)
[2016-10-11 04:00] VITALS: BP 160/80
[2016-10-11] MEDS: DEXT 5%/0.45% NACL KCL 20MEQ/L 1,000 ML IV SCH ×2 (04:02→12:56)
[2016-10-11] MEDS: VANCOMYCIN 1500MG in DEXTROSE 5% WATER 250ML IV SCH ×2 (04:02→16:59)
[2016-10-11] MEDS: PANTOPRAZOLE 40MG DR TABLET PO SCH ×2 (06:49→21:00)
[2016-10-11] MEDS: BLOOD SUGAR DIAGNOSTIC STRIP TEST SCH ×4 (06:49→21:25)
[2016-10-11 06:52] LABS: BASOPHILS % 0.2 % (0.0-2.0); EOSINOPHILS % 2.2 % (0.0-5.0); HEMOGLOBIN. 8.3 g/dL (14.0-18.0); LYMPHOCYTES % 8.1 % (20.0-50.0); MEAN CORPUSCULAR HEMOGLOBIN 29.6 pg (28.0-32.0); MEAN CORPUSCULAR VOLUME 89.1 fL (80.0-94.0); MEAN PLATELET VOLUME 8.6 fl (7.4-10.4); MONOCYTES % 5.7 % (2.0-8.0); NEUTROPHILS % 83.8 % (40.0-76.0); PLATELET 146 x1000/uL (130-400); RED CELL DISTRIBUTION WIDTH 15.8 % (11.6-14.6)
[2016-10-11 07:51] LABS: CARBON DIOXIDE 30 mEq/L (21-32); CHLORIDE 99 mEq/L (98-107)
[2016-10-11 07:56] VITALS: BP 141/70
[2016-10-11] MEDS: INSULIN LISPRO 100 UNITS/ML SUBCUT SCH ×4 (08:31→21:34)
[2016-10-11] MEDS ORDERED: LACTULOSE 20G/30ML UDC PO NR (11:00)
[2016-10-11 12:00] VITALS: BP 120/66
[2016-10-11 16:00] VITALS: BP 143/96
[2016-10-11] MEDS: SODIUM CHL 0.9% + KCL 20MEQ/L 1,000 ML IV SCH (16:59)
[2016-10-11 20:00] VITALS: BP 111/44
[2016-10-12] MEDS: SODIUM CHL 0.9% + KCL 20MEQ/L 1,000 ML IV SCH ×3 (02:00→22:25)
[2016-10-12] MEDS: VANCOMYCIN 1500MG in DEXTROSE 5% WATER 250ML IV SCH ×2 (05:00→17:05)
[2016-10-12 06:34] LABS: BASOPHILS % 0.6 % (0.0-2.0); EOSINOPHILS % 1.9 % (0.0-5.0); HEMOGLOBIN. 7.9 g/dL (14.0-18.0); LYMPHOCYTES % 9.6 % (20.0-50.0); MEAN CORPUSCULAR HEMOGLOBIN 29.4 pg (28.0-32.0); MEAN CORPUSCULAR VOLUME 89.5 fL (80.0-94.0); MEAN PLATELET VOLUME 8.8 fl (7.4-10.4); NEUTROPHILS % 80.9 % (40.0-76.0); PLATELET 144 x1000/uL (130-400); RED BLOOD CELL COUNT 2.68 mill/uL (4.7-6.1); RED CELL DISTRIBUTION WIDTH 15.9 % (11.6-14.6)
[2016-10-12 07:28] LABS: CARBON DIOXIDE 30 mEq/L (21-32)
[2016-10-12 07:32] LABS: CHLORIDE 103 mEq/L (98-107)
[2016-10-12] MEDS: BLOOD SUGAR DIAGNOSTIC STRIP TEST SCH ×3 (07:39→21:49)
[2016-10-12 07:55] VITALS: BP 137/69
[2016-10-12] MEDS: PANTOPRAZOLE 40MG DR TABLET PO SCH ×3 (08:25→22:44)
[2016-10-12] MEDS: MORPHINE SULFATE 2 MG/ML CPJ (NOT FOR IM USE) IV PRN ×2 (08:26→17:06)
[2016-10-12] MEDS: INSULIN LISPRO 100 UNITS/ML SUBCUT SCH ×4 (08:35→22:35)
[2016-10-12] MEDS ORDERED: LACTULOSE 20G/30ML UDC PO PRN (09:00)
[2016-10-12 12:39] VITALS: BP 142/52
[2016-10-12 16:26] VITALS: BP 161/67
[2016-10-12] MEDS: CLONIDINE 0.1MG TABLET PO PRN ×2 (17:06→22:43)
[2016-10-12 19:29] VITALS: BP 140/71
[2016-10-13 00:10] VITALS: BP 136/56
[2016-10-13 05:23] VITALS: BP 136/51
[2016-10-13] MEDS: BLOOD SUGAR DIAGNOSTIC STRIP TEST SCH ×4 (06:47→21:09)
[2016-10-13] MEDS: VANCOMYCIN 1500MG in DEXTROSE 5% WATER 250ML IV SCH ×2 (07:39→16:06)
[2016-10-13] MEDS: INSULIN LISPRO 100 UNITS/ML SUBCUT SCH ×4 (07:42→21:09)
[2016-10-13 08:00] VITALS: BP 138/68
[2016-10-13] MEDS: SODIUM CHL 0.9% + KCL 20MEQ/L 1,000 ML IV SCH ×2 (08:00→18:27)
[2016-10-13 10:28] LABS: BASOPHILS % 0.8 % (0.0-2.0); EOSINOPHILS % 1.1 % (0.0-5.0); HEMATOCRIT. 27.3 % (42.0-52.0); HEMOGLOBIN. 8.9 g/dL (14.0-18.0); LYMPHOCYTES % 8.1 % (20.0-50.0); MEAN CORPUSCULAR HEMOGLOBIN 29.2 pg (28.0-32.0); MEAN CORPUSCULAR VOLUME 89.8 fL (80.0-94.0); MEAN PLATELET VOLUME 8.9 fl (7.4-10.4); MONOCYTES % 6.6 % (2.0-8.0); NEUTROPHILS % 83.4 % (40.0-76.0); PLATELET 162 x1000/uL (130-400); RED BLOOD CELL COUNT 3.04 mill/uL (4.7-6.1); RED CELL DISTRIBUTION WIDTH 15.9 % (11.6-14.6)
[2016-10-13 10:57] LABS: CARBON DIOXIDE 29 mEq/L (21-32); CHLORIDE 98 mEq/L (98-107)
[2016-10-13 12:00] VITALS: BP 142/66
[2016-10-13 16:00] VITALS: BP 124/50
[2016-10-13 20:00] VITALS: BP 134/57
[2016-10-13] MEDS: PANTOPRAZOLE 40MG DR TABLET PO SCH (21:07)
[2016-10-14] VITALS: BP 137/68
[2016-10-14 04:00] VITALS: BP 144/60
[2016-10-14] MEDS: VANCOMYCIN 1500MG in DEXTROSE 5% WATER 250ML IV SCH ×2 (04:05→16:53)
[2016-10-14] MEDS: SODIUM CHL 0.9% + KCL 20MEQ/L 1,000 ML IV SCH ×2 (04:05→15:14)
[2016-10-14 05:46] LABS: BASOPHILS % 0.7 % (0.0-2.0); EOSINOPHILS % 1.6 % (0.0-5.0); HEMATOCRIT. 23.2 % (42.0-52.0); HEMOGLOBIN. 7.7 g/dL (14.0-18.0); LYMPHOCYTES % 8.5 % (20.0-50.0); MEAN CORPUSCULAR HEMOGLOBIN 29.2 pg (28.0-32.0); MEAN CORPUSCULAR VOLUME 87.8 fL (80.0-94.0); MEAN PLATELET VOLUME 8.7 fl (7.4-10.4); MONOCYTES % 6.5 % (2.0-8.0); NEUTROPHILS % 82.7 % (40.0-76.0); PLATELET 166 x1000/uL (130-400); RED BLOOD CELL COUNT 2.65 mill/uL (4.7-6.1)
[2016-10-14 06:17] LABS: CARBON DIOXIDE 30 mEq/L (21-32); CHLORIDE 103 mEq/L (98-107)
[2016-10-14] MEDS: BLOOD SUGAR DIAGNOSTIC STRIP TEST SCH ×4 (06:30→21:39)
[2016-10-14] MEDS: INSULIN LISPRO 100 UNITS/ML SUBCUT SCH ×4 (07:54→21:39)
[2016-10-14] MEDS: PANTOPRAZOLE 40MG DR TABLET PO SCH ×2 (08:16→21:39)
[2016-10-14 08:35] VITALS: BP 135/63
[2016-10-14 13:09] VITALS: BP 132/56
[2016-10-14 17:44] VITALS: BP 130/56
[2016-10-14 20:00] VITALS: BP 134/55
[2016-10-15] VITALS (7 sets, daily range): BP systolic 125–161; BP diastolic 59–72
[2016-10-15] MEDS: SODIUM CHL 0.9% + KCL 20MEQ/L 1,000 ML IV SCH ×2 (00:19→10:00)
[2016-10-15] MEDS: VANCOMYCIN 1500MG in DEXTROSE 5% WATER 250ML IV SCH (04:16)
[2016-10-15] MEDS: PANTOPRAZOLE 40MG DR TABLET PO SCH ×2 (06:40→22:07)
[2016-10-15] MEDS: BLOOD SUGAR DIAGNOSTIC STRIP TEST SCH ×4 (06:41→21:00)
[2016-10-15 08:20] LABS: FACTOR VIII ACTIVITY 168 % (57-163); VON WILLEBRAND FACTOR ANTIGEN 184 % (50-200)
[2016-10-15] MEDS: INSULIN LISPRO 100 UNITS/ML SUBCUT SCH ×4 (08:22→21:00)
[2016-10-15] MEDS: ACETAMINOPHEN 325MG TABLET PO PRN (11:45)
[2016-10-15 15:02] LABS: CARBON DIOXIDE 31 mEq/L (21-32); CHLORIDE 99 mEq/L (98-107)
[2016-10-15 15:04] LABS: BASOPHILS % 0.8 % (0.0-2.0); HEMOGLOBIN. 8.9 g/dL (14.0-18.0); LYMPHOCYTES % 8.5 % (20.0-50.0); MEAN CORPUSCULAR HEMOGLOBIN 28.9 pg (28.0-32.0); MEAN CORPUSCULAR VOLUME 88.2 fL (80.0-94.0); MEAN PLATELET VOLUME 8.8 fl (7.4-10.4); MONOCYTES % 6.1 % (2.0-8.0); NEUTROPHILS % 83.6 % (40.0-76.0); PLATELET 207 x1000/uL (130-400); RED BLOOD CELL COUNT 3.06 mill/uL (4.7-6.1); RED CELL DISTRIBUTION WIDTH 15.9 % (11.6-14.6)
[2016-10-15] MEDS: CLONIDINE 0.1MG TABLET PO PRN (22:07)
[2016-10-16] VITALS: BP 148/74
[2016-10-16 04:00] VITALS: BP_SYST 153; BP_SYST 97; BP_DIAS 64; BP_DIAS 75
[2016-10-16] MEDS: BLOOD SUGAR DIAGNOSTIC STRIP TEST SCH ×4 (06:17→21:00)
[2016-10-16] MEDS: PANTOPRAZOLE 40MG DR TABLET PO SCH ×2 (06:17→22:18)
[2016-10-16 08:00] VITALS: BP 139/59
[2016-10-16] MEDS: INSULIN LISPRO 100 UNITS/ML SUBCUT SCH ×4 (08:22→22:26)
[2016-10-16 12:00] VITALS: BP 123/56
[2016-10-16 16:00] VITALS: BP 119/66
[2016-10-16 20:00] VITALS: BP 148/66
[2016-10-17] VITALS: BP 141/59
[2016-10-17] MEDS: ACETAMINOPHEN 325MG TABLET PO PRN (03:08)
[2016-10-17 04:00] VITALS: BP 146/60
[2016-10-17] MEDS: PANTOPRAZOLE 40MG DR TABLET PO SCH ×2 (06:37→21:35)
[2016-10-17] MEDS: BLOOD SUGAR DIAGNOSTIC STRIP TEST SCH ×4 (06:37→21:35)
[2016-10-17 08:00] VITALS: BP 152/73
[2016-10-17] MEDS: INSULIN LISPRO 100 UNITS/ML SUBCUT SCH ×4 (08:21→21:35)
[2016-10-17 12:00] VITALS: BP 133/61
[2016-10-17 16:00] VITALS: BP 128/60
[2016-10-17 20:00] VITALS: BP 121/65
[2016-10-18] VITALS: BP 150/72
[2016-10-18] MEDS: ACETAMINOPHEN 325MG TABLET PO PRN ×2 (02:37→14:32)
[2016-10-18 04:00] VITALS: BP 154/74
[2016-10-18] MEDS: BLOOD SUGAR DIAGNOSTIC STRIP TEST SCH ×4 (07:16→21:22)
[2016-10-18] MEDS: PANTOPRAZOLE 40MG DR TABLET PO SCH ×2 (07:16→21:20)
[2016-10-18 07:37] VITALS: BP 146/77
[2016-10-18] MEDS: INSULIN LISPRO 100 UNITS/ML SUBCUT SCH ×4 (08:10→21:21)
[2016-10-18 12:00] VITALS: BP 140/72
[2016-10-18 16:00] VITALS: BP 125/64
[2016-10-18 20:00] VITALS: BP 126/65
[2016-10-19] VITALS: BP 143/58
[2016-10-19] MEDS: ACETAMINOPHEN 325MG TABLET PO PRN ×2 (01:58→23:44)
[2016-10-19 04:00] VITALS: BP 113/71
[2016-10-19] MEDS: BLOOD SUGAR DIAGNOSTIC STRIP TEST SCH ×4 (06:22→21:00)
[2016-10-19] MEDS: PANTOPRAZOLE 40MG DR TABLET PO SCH ×2 (06:31→22:00)
[2016-10-19 06:44] LABS: HEMOGLOBIN. 8.4 g/dL (14.0-18.0); LYMPHOCYTES % 9.7 % (20.0-50.0); MEAN CORPUSCULAR HEMOGLOBIN 28.2 pg (28.0-32.0); MEAN CORPUSCULAR VOLUME 87.1 fL (80.0-94.0); MEAN PLATELET VOLUME 8.6 fl (7.4-10.4); MONOCYTES % 4.9 % (2.0-8.0); NEUTROPHILS % 82.4 % (40.0-76.0); PLATELET 280 x1000/uL (130-400); RED BLOOD CELL COUNT 2.98 mill/uL (4.7-6.1); RED CELL DISTRIBUTION WIDTH 15.7 % (11.6-14.6)
[2016-10-19 07:10] LABS: CARBON DIOXIDE 31 mEq/L (21-32); CHLORIDE 100 mEq/L (98-107)
[2016-10-19 07:42] VITALS: BP 147/73
[2016-10-19] MEDS: INSULIN LISPRO 100 UNITS/ML SUBCUT SCH ×4 (08:33→21:59)
[2016-10-19 11:20] VITALS: BP 156/75
[2016-10-19 16:00] VITALS: BP 145/70
[2016-10-19 20:00] VITALS: BP 158/73
[2016-10-20] VITALS: BP 156/70
[2016-10-20] MEDS: MORPHINE SULFATE 4 MG/ML CPJ (NOT FOR IM USE) IV PRN ×2 (01:29→16:39)
[2016-10-20 04:00] VITALS: BP 143/71
[2016-10-20] MEDS: PANTOPRAZOLE 40MG DR TABLET PO SCH ×2 (06:22→21:28)
[2016-10-20] MEDS: BLOOD SUGAR DIAGNOSTIC STRIP TEST SCH ×4 (06:24→21:29)
[2016-10-20 08:00] VITALS: BP 159/81
[2016-10-20] MEDS: INSULIN LISPRO 100 UNITS/ML SUBCUT SCH ×4 (09:11→21:33)
[2016-10-20 12:00] VITALS: BP 166/73
[2016-10-20 16:00] VITALS: BP 141/67
[2016-10-20 20:25] VITALS: BP 161/73
[2016-10-21] VITALS: BP 134/62
[2016-10-21] MEDS: MORPHINE SULFATE 4 MG/ML CPJ (NOT FOR IM USE) IV PRN ×2 (03:13→18:28)
[2016-10-21 04:00] VITALS: BP 161/80
[2016-10-21] MEDS: PANTOPRAZOLE 40MG DR TABLET PO SCH ×2 (07:10→22:06)
[2016-10-21] MEDS: BLOOD SUGAR DIAGNOSTIC STRIP TEST SCH ×4 (07:10→21:00)
[2016-10-21] MEDS: CLONIDINE 0.1MG TABLET PO PRN (07:10)
[2016-10-21 07:39] VITALS: BP 145/77
[2016-10-21] MEDS: INSULIN LISPRO 100 UNITS/ML SUBCUT SCH ×4 (08:25→22:12)
[2016-10-21 12:03] VITALS: BP 122/57
[2016-10-21] MEDS ORDERED: INSULIN LISPRO 100 UNITS/ML SUBCUT SCH (14:00)
[2016-10-21 16:03] VITALS: BP 116/52
[2016-10-21 20:00] VITALS: BP 112/55
[2016-10-22] VITALS: BP 130/83
[2016-10-22 04:00] VITALS: BP 136/84
[2016-10-22] MEDS: BLOOD SUGAR DIAGNOSTIC STRIP TEST SCH ×2 (06:26→13:00)
[2016-10-22] MEDS: PANTOPRAZOLE 40MG DR TABLET PO SCH (06:26)
[2016-10-22 08:30] VITALS: BP 133/62
[2016-10-22] MEDS: INSULIN LISPRO 100 UNITS/ML SUBCUT SCH ×2 (08:32→12:50)
[2016-10-22 11:11] VITALS: BP 133/62
[2016-10-22 12:47] VITALS: BP 118/73
== END 2016-10-22 13:33 | disposition home or self-care (01) | DRG 474 ==
LOC: ER 13:50 → 6EST 17:21 → ENRESERV 18:56 → 6WST 10-06 18:21
PROVIDERS: ADMIT Internal Medicine; ATTEND Internal Medicine
PROC: 0Y6D0Z3 Detachment at Left Upper Leg, Low, Open Approach (ICD-10-PCS; principal; 2016-10-04 19:30)
PROC: 30233N1 Transfusion of Nonautologous Red Blood Cells into Peripheral Vein, Percutaneous Approach (ICD-10-PCS; 2016-10-05)
PROC: 0Y380ZZ Control Bleeding in Left Femoral Region, Open Approach (ICD-10-PCS; 2016-10-07)
DX: T87.44 Infection of amputation stump, left lower extremity (principal); M72.6 Necrotizing fasciitis; E43 Unspecified severe protein-calorie malnutrition; A41.9 Sepsis, unspecified organism; E11.52 Type 2 diabetes mellitus with diabetic peripheral angiopathy with gangrene; M86.8X6 Other osteomyelitis, lower leg; R58 Hemorrhage, not elsewhere classified; T87.54 Necrosis of amputation stump, left lower extremity; E11.40 Type 2 diabetes mellitus with diabetic neuropathy, unspecified; E11.69 Type 2 diabetes mellitus with other specified complication; D64.9 Anemia, unspecified; I10 Essential (primary) hypertension; E11.65 Type 2 diabetes mellitus with hyperglycemia; E78.00 Pure hypercholesterolemia, unspecified; E78.5 Hyperlipidemia, unspecified; K59.00 Constipation, unspecified; Z60.2 Problems related to living alone; H40.9 Unspecified glaucoma; D72.825 Bandemia; I25.10 Atherosclerotic heart disease of native coronary artery without angina pectoris; Z79.84 Long term (current) use of oral hypoglycemic drugs; Z79.899 Other long term (current) drug therapy; Z82.49 Family history of ischemic heart disease and other diseases of the circulatory system; Z85.46 Personal history of malignant neoplasm of prostate; Z89.512 Acquired absence of left leg below knee; Z89.422 Acquired absence of other left toe(s); Z68.23 Body mass index [BMI] 23.0-23.9, adult; Z89.421 Acquired absence of other right toe(s); Y92.89 Other specified places as the place of occurrence of the external cause
CPT/HCPCS: 36415; 73560; 73590; 73721; 80048; 80053; 80061; 80150; 80202; 82550; 82784; 82962; 83615; 84439; 84443; 85014; 85018; 85025; 85027; 85240; 85246; 85247; 85384; 85576; 85610; 85730; 86334; 86850; 86870; 86900; 86920; 87040; 87186; 88307; 88311; 93005; 96365; 96366; 97110; 97116; 97162; 97166; 97530; 99285; A4216; A6261; C1893; J0171; J0278; J0360; J0690; J0696; J1100; J1170; J1650; J1815; J1956; J2250; J2270; J2370; J2405; J2543; J2704; J3010; J3370; J3480; J3490; J7030; J7040; J7050; J7060; P9016

== ENCOUNTER 2017-10-25 05:20 | Day surgery (SDC) | payer MEDICARE, MEDICAID ==
[~2017-10-25] VITALS: Ht 172.7 cm; Wt 72.6 kg
[~2017-10-25 05:20] MED LIST changes: -METF500T4 PO; +METF500T6 PO
[2017-10-25] MEDS: PHENYLEPHRINE HCL 10% OPHTH DROPS 5ML LEFTEYE SCH ×2 (06:00→06:29)
[2017-10-25] MEDS ORDERED: TROPICAMIDE 1% OPHTH DROPS 15ML LEFTEYE SCH (06:10)
[2017-10-25] MEDS ORDERED: CYCLOPENTOLATE HCL 1% OPHTH DROPS 2ML LEFTEYE SCH (06:10)
[2017-10-25] MEDS ORDERED: ASCO-339 PO (06:12)
[2017-10-25] MEDS ORDERED: OXYB5TAB PO (06:12)
[2017-10-25] MEDS ORDERED: ENAL20TA PO (06:12)
[2017-10-25] MEDS ORDERED: BALANCED SALT IRRIG SOLN COMB1 500ML OP ONE (06:45)
[2017-10-25] MEDS ORDERED: HYALURONATE SODIUM 14 MG/ML 0.85ML SYRINGE IO ONE (07:01)
[2017-10-25] MEDS ORDERED: MIDAZOLAM HCL 2 MG/2 ML VIAL ONE ×2 (08:17→08:30)
[2017-10-25] MEDS ORDERED: SODIUM CHLORIDE 0.9% 1,000 ML IV ONE (08:20)
[2017-10-25] MEDS ORDERED: ONDANSETRON HCL 4MG/2ML INJ IV PRN (08:30)
[2017-10-25] MEDS ORDERED: TETRACAINE 0.5% OPHTH DROPS 4ML ONE (14:22)
[2017-10-25] MEDS ORDERED: CIPROFLOXACIN 0.3% OPHTH SOLN 2.5ML ONE (14:22)
[2017-10-25] MEDS ORDERED: CYCLOPENTOLATE HCL 1% OPHTH DROPS 2ML ONE (14:22)
[2017-10-25] MEDS ORDERED: PREDNISOLONE ACETATE 1% OPHTH DROPS 1ML ONE (14:22)
[2017-10-25] MEDS ORDERED: LIDOCAINE HCL 2%/EPINEPHRINE 1:100,000 20 ML VIAL INFIL ONE (14:22)
[2017-10-25] MEDS ORDERED: PHENYLEPHRINE HCL 10% OPHTH DROPS 5ML ONE (14:22)
[2017-10-25] MEDS ORDERED: NEO/POLYMYX B SULF/DEXAMETH OPHTH OINT 3.5GM ONE (14:22)
[2017-10-25] MEDS ORDERED: TROPICAMIDE 1% OPHTH DROPS 15ML ONE (14:22)
[2017-10-25] MEDS ORDERED: BALANCED SALT IRRIG SOLN 15ML ONE (14:22)
== END 2017-10-25 10:25 | disposition home or self-care (01) ==
LOC: OR 05:20
PROVIDERS: ATTEND Ophthalmology
DX: E11.36 Type 2 diabetes mellitus with diabetic cataract (principal); H25.012 Cortical age-related cataract, left eye; H40.9 Unspecified glaucoma; E78.5 Hyperlipidemia, unspecified; F17.210 Nicotine dependence, cigarettes, uncomplicated; I25.10 Atherosclerotic heart disease of native coronary artery without angina pectoris; D64.9 Anemia, unspecified; I11.9 Hypertensive heart disease without heart failure; Z79.899 Other long term (current) drug therapy
CPT/HCPCS: 66984; 82962; J2250; J3490; J7120; V2632

== ENCOUNTER 2019-01-19 10:48 | Emergency (ER) | payer MEDICAID, MEDICARE ==
[~2019-01-19] VITALS: Ht 172.7 cm; Wt 81.0 kg
[~2019-01-19 10:48] MED LIST changes: +ASCO-339 PO; +ENAL20TA PO; +METF-414 PO; -METF500T6 PO; +OXYB5TAB PO
[2019-01-19 19:28] VITALS: BP 133/74
[2019-01-19] MEDS: BACITRACIN ZINC OINT UDPKT TOP ONE (19:30)
== END 2019-01-19 19:40 | disposition home or self-care (01) ==
LOC: ER 10:48
DX: L97.518 Non-pressure chronic ulcer of other part of right foot with other specified severity (principal); E11.9 Type 2 diabetes mellitus without complications; E78.00 Pure hypercholesterolemia, unspecified; I10 Essential (primary) hypertension; Z98.890 Other specified postprocedural states; Z79.899 Other long term (current) drug therapy
CPT/HCPCS: 73630; 73660; 82962; 99283

== ENCOUNTER 2020-06-05 14:45 | Emergency (ER) | payer MEDICARE, MEDICAID ==
[~2020-06-05] VITALS: Ht 172.7 cm; Wt 82.0 kg
[~2020-06-05 14:45] MED LIST changes: -ENAL20TA PO; +ENAL20TA18 PO; +LATA2.5D14 OP; -LATA2.5D2 OP
[2020-06-05 17:34] LABS: BASOPHILS % 0.3 % (0.0-2.0); EOSINOPHILS % 0.9 % (0.0-5.0); HEMATOCRIT. 30.8 % (42.0-52.0); LYMPHOCYTES % 12.3 % (20.0-50.0); MEAN CORPUSCULAR VOLUME 92.7 fL (80.0-94.0); MEAN PLATELET VOLUME 9.3 fl (7.4-10.4); MONOCYTES % 6.2 % (2.0-8.0); NEUTROPHILS % 80.3 % (40.0-76.0); PLATELET 184 x1000/uL (130-400); RED BLOOD CELL COUNT 3.32 mill/uL (4.7-6.1); RED CELL DISTRIBUTION WIDTH 18.2 % (11.6-14.6)
[2020-06-05 17:40] LABS: CHLORIDE 106 mEq/L (98-107)
[2020-06-05 17:49] LABS: INR 1.2; PROTHROMBIN TIME 12.7 sec (9.6-11.0)
[2020-06-05 21:30] VITALS: BP 147/67
== END 2020-06-05 23:50 | disposition home or self-care (01) ==
LOC: ER 14:45
DX: I97.618 Postprocedural hemorrhage of a circulatory system organ or structure following other circulatory system procedure (principal); I10 Essential (primary) hypertension; Y83.8 Other surgical procedures as the cause of abnormal reaction of the patient, or of later complication, without mention of misadventure at the time of the procedure; Y92.89 Other specified places as the place of occurrence of the external cause; D64.9 Anemia, unspecified; D72.829 Elevated white blood cell count, unspecified
CPT/HCPCS: 36415; 76857; 80053; 85025; 99284

== ENCOUNTER 2022-02-03 19:45 | Emergency (ER) | payer MEDICARE, MEDICAID ==
[~2022-02-03] VITALS: Ht 180.3 cm; Wt 69.0 kg
[2022-02-03] MEDS ORDERED: ACETAMINOPHEN 325MG TABLET PO NR (22:45)
[2022-02-03] MEDS ORDERED: TETANUS AND DIPHTHERIA TOX/PF 0.5ML SYR (ADULT) IM ONE (22:45)
[2022-02-04 00:53] VITALS: BP 136/63
== END 2022-02-04 01:28 | disposition home or self-care (01) ==
LOC: ER 19:45
DX: S40.012A Contusion of left shoulder, initial encounter (principal); S51.012A Laceration without foreign body of left elbow, initial encounter; Z89.612 Acquired absence of left leg above knee; W18.39XA Other fall on same level, initial encounter; Y93.89 Activity, other specified; Y92.018 Other place in single-family (private) house as the place of occurrence of the external cause
CPT/HCPCS: 73030; 73060; 73080; 90471; 90714; 99284

== ENCOUNTER 2022-02-05 01:14 | Emergency (ER) | payer MEDICARE, MEDICAID ==
[~2022-02-05] VITALS: Ht 172.7 cm; Wt 75.0 kg
[2022-02-05] MEDS ORDERED: SODIUM CHLORIDE 0.9% 500 ML IV ONE (07:45)
[2022-02-05 12:35] VITALS: BP 148/41
== END 2022-02-05 12:58 | disposition home or self-care (01) ==
LOC: ER 01:14 → CANBEDREQ 10:36 → ER 12:58
DX: S42.302A Unspecified fracture of shaft of humerus, left arm, initial encounter for closed fracture (principal); W18.39XA Other fall on same level, initial encounter; Y93.89 Activity, other specified; Y92.89 Other specified places as the place of occurrence of the external cause; Y99.8 Other external cause status; E11.9 Type 2 diabetes mellitus without complications; I10 Essential (primary) hypertension; F12.10 Cannabis abuse, uncomplicated; Z79.899 Other long term (current) drug therapy
CPT/HCPCS: 73200; 99284; J7040; L1830; L3670

== ENCOUNTER 2022-02-06 09:55 | Inpatient (IN) | payer MEDICARE, MEDICAID ==
[~2022-02-06] VITALS: Ht 172.7 cm; Wt 69.2 kg
[2022-02-06 11:03] LABS: HEMATOCRIT. 29.3 % (42.0-52.0); HEMOGLOBIN. 9.4 g/dL (14.0-18.0); MEAN CORPUSCULAR HEMOGLOBIN 29.7 pg (28.0-32.0); MEAN CORPUSCULAR VOLUME 92.6 fL (80.0-94.0); MEAN PLATELET VOLUME 8.2 fl (7.4-10.4); PLATELET 257 x1000/uL (130-400); RED BLOOD CELL COUNT 3.16 mill/uL (4.7-6.1); RED CELL DISTRIBUTION WIDTH 20.1 % (11.6-14.6)
[2022-02-06 11:10] LABS: CHLORIDE 103 mEq/L (98-107)
[2022-02-06 11:12] LABS: INR 1.1; PROTHROMBIN TIME 12.1 sec (9.6-11.0)
[2022-02-06 13:24] LABS: PLATELET ESTIMATE NORMAL
[2022-02-06] MEDS ORDERED: HYDROCODONE/ACETAMINOPHEN 7.5/325MG TABLET PO PRN (15:30)
[2022-02-06] MEDS ORDERED: ONDANSETRON HCL 4MG/2ML INJ IV PRN (15:30)
[2022-02-06] MEDS ORDERED: LORAZEPAM 0.5MG TABLET PO PRN (15:30)
[2022-02-06] MEDS ORDERED: DOCUSATE SODIUM 100MG CAPSULE PO PRN (15:30)
[2022-02-06] MEDS ORDERED: ACETAMINOPHEN 325MG TABLET PO PRN ×2 (15:30)
[2022-02-06] MEDS ORDERED: IPRATROPIUM/ALBUTEROL 0.5-3(2.5)MG/3ML NEB HHN PRN (15:30)
[2022-02-06] MEDS: LACTATED RINGERS 1,000 ML IV SCH (16:05)
[2022-02-06 17:15] VITALS: BP 148/69
[2022-02-06] MEDS ORDERED: NALOXONE HCL 0.4MG/ML VIAL IV PRN (17:30)
[2022-02-06 18:07] VITALS: BP 148/69
[2022-02-06 20:00] VITALS: BP 153/76
[2022-02-06 21:56] LABS: CLARITY URINE CLEAR (CLEAR); COLOR URINE YELLOW (YELLOW); KETONES URINE TRACE (NEGATIVE); LEUKOCYTE ESTERASE URINE TRACE (NEGATIVE); NITRITE URINE POSITIVE (NEGATIVE); OCCULT BLOOD URINE NEGATIVE (NEGATIVE); PH URINE 5.5 (4.5-8.0); PROTEIN URINE NEGATIVE (NEGATIVE); SPECIFIC GRAVITY URINE 1.026 (1.005-1.030)
[2022-02-07] VITALS: BP_SYST 158; BP_SYST 165; BP_DIAS 76
[2022-02-07 04:00] VITALS: BP 143/74
[2022-02-07] MEDS: LACTATED RINGERS 1,000 ML IV SCH ×3 (04:00→16:05)
[2022-02-07 07:32] LABS: HEMOGLOBIN. 8.9 g/dL (14.0-18.0); MEAN CORPUSCULAR HEMOGLOBIN 30.7 pg (28.0-32.0); MEAN CORPUSCULAR VOLUME 93.2 fL (80.0-94.0); MEAN PLATELET VOLUME 8.5 fl (7.4-10.4); PLATELET 259 x1000/uL (130-400); RED CELL DISTRIBUTION WIDTH 19.9 % (11.6-14.6)
[2022-02-07 07:43] LABS: CHLORIDE 103 mEq/L (98-107)
[2022-02-07 08:00] VITALS: BP 168/75
[2022-02-07] MEDS: CLONIDINE 0.1MG TABLET PO PRN (09:40)
[2022-02-07 12:00] VITALS: BP 138/70
[2022-02-07 13:54] LABS: PLATELET ESTIMATE NORMAL
[2022-02-07] MEDS ORDERED: CEFTRIAXONE 1 G PREMIX 50 ML IV SCH (14:30)
[2022-02-07 16:00] VITALS: BP 135/68
[2022-02-07] MEDS: CEFTRIAXONE 1,000 MG in DEXTROSE 5% WATER 50 ML IV SCH (16:05)
[2022-02-07 20:00] VITALS: BP 144/72
[2022-02-08] VITALS: BP 146/72
[2022-02-08] MEDS: HYDROCODONE/ACETAMINOPHEN 5/325MG TABLET PO PRN ×3 (01:22→16:26)
[2022-02-08 04:00] VITALS: BP 138/63
[2022-02-08] MEDS: LACTATED RINGERS 1,000 ML IV SCH ×2 (04:32→16:13)
[2022-02-08 08:00] VITALS: BP 136/59
[2022-02-08 12:15] VITALS: BP 168/89
[2022-02-08 16:00] VITALS: BP 158/84
[2022-02-08] MEDS: CEFTRIAXONE 1,000 MG in DEXTROSE 5% WATER 50 ML IV SCH (16:13)
[2022-02-08 20:00] VITALS: BP 135/69
[2022-02-09] VITALS: BP 165/73
[2022-02-09] MEDS: CLONIDINE 0.1MG TABLET PO PRN (01:18)
[2022-02-09] MEDS: HYDROCODONE/ACETAMINOPHEN 5/325MG TABLET PO PRN (01:19)
[2022-02-09 04:00] VITALS: BP 133/68
[2022-02-09] MEDS: LACTATED RINGERS 1,000 ML IV SCH ×2 (06:00→17:28)
[2022-02-09 07:33] LABS: BASOPHILS % 2.1 % (0.0-2.0); EOSINOPHILS % 1.6 % (0.0-5.0); HEMATOCRIT. 24.1 % (42.0-52.0); HEMOGLOBIN. 7.8 g/dL (14.0-18.0); LYMPHOCYTES % 10.9 % (20.0-50.0); MEAN CORPUSCULAR HEMOGLOBIN 29.6 pg (28.0-32.0); MEAN PLATELET VOLUME 8.2 fl (7.4-10.4); MONOCYTES % 4.7 % (2.0-8.0); NEUTROPHILS % 80.7 % (40.0-76.0); PLATELET 292 x1000/uL (130-400); RED BLOOD CELL COUNT 2.62 mill/uL (4.7-6.1); RED CELL DISTRIBUTION WIDTH 20.7 % (11.6-14.6)
[2022-02-09 07:52] LABS: CHLORIDE 104 mEq/L (98-107)
[2022-02-09 08:00] VITALS: BP 141/58
[2022-02-09 12:00] VITALS: BP 135/56
[2022-02-09] MEDS ORDERED: DEXTROSE 50% WATER 50ML SYRINGE IV PRN (13:15)
[2022-02-09 16:00] VITALS: BP 151/95
[2022-02-09] MEDS: BLOOD SUGAR DIAGNOSTIC STRIP TEST SCH ×2 (16:21→20:59)
[2022-02-09] MEDS: CEFTRIAXONE 1,000 MG in DEXTROSE 5% WATER 50 ML IV SCH (16:21)
[2022-02-09] MEDS: HYDROCODONE/ACETAMINOPHEN 7.5/325MG TABLET PO PRN (17:23)
[2022-02-09] MEDS: INSULIN LISPRO 100 UNITS/ML SUBCUT SCH ×2 (17:24→21:10)
[2022-02-09 20:00] VITALS: BP 137/65
[2022-02-10] VITALS: BP 143/64
[2022-02-10] MEDS: HYDROCODONE/ACETAMINOPHEN 7.5/325MG TABLET PO PRN (03:10)
[2022-02-10 04:00] VITALS: BP 139/66
[2022-02-10] MEDS: LACTATED RINGERS 1,000 ML IV SCH ×2 (05:45→22:15)
[2022-02-10] MEDS: BLOOD SUGAR DIAGNOSTIC STRIP TEST SCH ×4 (05:45→21:00)
[2022-02-10] MEDS: INSULIN LISPRO 100 UNITS/ML SUBCUT SCH ×4 (05:45→22:29)
[2022-02-10 06:56] LABS: CHLORIDE 103 mEq/L (98-107)
[2022-02-10 07:56] LABS: BASOPHILS % 2.1 % (0.0-2.0); EOSINOPHILS % 1.6 % (0.0-5.0); HEMATOCRIT. 24.8 % (42.0-52.0); LYMPHOCYTES % 9.4 % (20.0-50.0); MEAN CORPUSCULAR HEMOGLOBIN 29.9 pg (28.0-32.0); MEAN CORPUSCULAR VOLUME 93.3 fL (80.0-94.0); NEUTROPHILS % 81.9 % (40.0-76.0); PLATELET 290 x1000/uL (130-400); RED BLOOD CELL COUNT 2.66 mill/uL (4.7-6.1)
[2022-02-10 08:00] VITALS: BP 133/56
[2022-02-10 12:00] VITALS: BP 134/66
[2022-02-10 16:00] VITALS: BP 144/72
[2022-02-10] MEDS: CEFTRIAXONE 1,000 MG in DEXTROSE 5% WATER 50 ML IV SCH (17:36)
[2022-02-10 20:00] VITALS: BP 166/73
[2022-02-10] MEDS: CLONIDINE 0.1MG TABLET PO PRN (22:15)
[2022-02-11] VITALS (7 sets, daily range): BP systolic 119–158; BP diastolic 34–76
[2022-02-11] MEDS: BLOOD SUGAR DIAGNOSTIC STRIP TEST SCH ×4 (06:40→20:14)
[2022-02-11] MEDS: INSULIN LISPRO 100 UNITS/ML SUBCUT SCH ×4 (07:10→20:37)
[2022-02-11] MEDS: LACTATED RINGERS 1,000 ML IV SCH ×2 (08:00→20:38)
[2022-02-11 08:09] LABS: HEMATOCRIT. 26.1 % (42.0-52.0); HEMOGLOBIN. 8.5 g/dL (14.0-18.0); MEAN CORPUSCULAR HEMOGLOBIN 30.3 pg (28.0-32.0); MEAN CORPUSCULAR VOLUME 93.3 fL (80.0-94.0); PLATELET 291 x1000/uL (130-400); RED CELL DISTRIBUTION WIDTH 20.6 % (11.6-14.6)
[2022-02-11 08:31] LABS: CHLORIDE 101 mEq/L (98-107)
[2022-02-11] MEDS: CEFTRIAXONE 1,000 MG in DEXTROSE 5% WATER 50 ML IV SCH (15:17)
[2022-02-11 19:22] LABS: PLATELET ESTIMATE NORMAL
== END 2022-02-12 01:35 | DRG 872 ==
LOC: ER 09:55 → EDBEDREQSVC 11:31 → EDBEDREQ 11:31 → MICUSO 12:54 → EDBEDREQ 13:08 → EDBEDREQTM 13:08 → 7EST 17:17
PROVIDERS: ADMIT Internal Medicine; ATTEND Internal Medicine
DX: A41.9 Sepsis, unspecified organism (principal); N39.0 Urinary tract infection, site not specified; E11.9 Type 2 diabetes mellitus without complications; I10 Essential (primary) hypertension; D72.825 Bandemia; D64.9 Anemia, unspecified; Z20.822 Contact with and (suspected) exposure to COVID-19; Z83.3 Family history of diabetes mellitus; Z82.49 Family history of ischemic heart disease and other diseases of the circulatory system; Z89.612 Acquired absence of left leg above knee
CPT/HCPCS: 36415; 71045; 72170; 72192; 73030; 73060; 73070; 73080; 73200; 80048; 80053; 81003; 82962; 83036; 83605; 84145; 85025; 87077; 87186; 87426; 87804; 93005; 97161; 97166; 97530; 99285; C1893; C9803; J0696; J1815; J7060